=== PATIENT | male | born 1945 | race Caucasian/White ===

== ENCOUNTER → 2021-01-08 | Outpatient (CLI) | payer MEDICARE, BC ==
[~2021-01-08] MED LIST: AMLO2.5T5 PO; ASPI81TA45 PO; CLON-364 PO; CLOP75TA52 PO; LEVO75TA PO; LOSA100T14 PO; ROSU10TA2 PO
[2021-01-08 16:43] LABS: BASOPHILS % (AUTO) 0 % (0-1); EOSINOPHILS % (AUTO) 2 % (1-7); LYMPHOCYTES % (AUTO) 22 % (22-44); MEAN CORPUSCULAR HEMOGLOBIN 31.5 pg (27.5-34.5); MEAN PLATELET VOLUME 8.8 fL (7.4-10.4); MONOCYTES % (AUTO) 13 % (2-9); NEUTROPHILS % (AUTO) 63 % (42-75); PLATELET COUNT 188 x10^3/uL (130-400); RED BLOOD COUNT 4.11 x10^6/uL (4.38-5.82); RED CELL DISTRIBUTION WIDTH 14.2 % (9.4-14.8)
[2021-01-08 16:54] LABS: ALANINE AMINOTRANSFERASE 29 U/L (12-78); ALBUMIN 3.4 g/dL (3.4-5.0); ANION GAP 4 mmol/L (5-15); CALCIUM 8.4 mg/dL (8.5-10.1); CHLORIDE 108 mmol/L (98-107); CREATININE 1.49 mg/dL (0.7-1.3)
[2021-01-08 16:57] LABS: ALKALINE PHOSPHATASE 95 U/L (45-117); BILIRUBIN,TOTAL 0.5 mg/dL (0.2-1.0); TOTAL PROTEIN 6.2 g/dL (6.4-8.2)
== END | disposition home or self-care (01) ==
LOC: MERGE 15:12 → CLISVCS 15:12
PROVIDERS: ATTEND Surgery
DX: Z01.818 Encounter for other preprocedural examination (principal); M51.34 Other intervertebral disc degeneration, thoracic region; R94.31 Abnormal electrocardiogram [ECG] [EKG]
CPT/HCPCS: 36415; 71046; 80053; 85025; 93005

== ENCOUNTER 2021-01-15 07:23 | Inpatient (IN) | payer MEDICARE, BC ==
[~2021-01-15] VITALS: Ht 182.9 cm; Wt 83.5 kg
[~2021-01-15 07:23] MED LIST changes: +HEPARIN 1,000 UNITS/ML, 10ML ONE; +LIDOCAINE 1%, 20ML ONE; +PROTAMINE SULFATE 10 MG/ML, 5ML ONE; +THROMBIN 5,000 UNIT VIAL TP ONE
[2021-01-15] MEDS: LACTATED RINGERS 1,000 ML IV SCH ×2 (08:25→08:51)
[2021-01-15] MEDS ORDERED: ASPIRIN 81 MG TABLET CHEW PO ONE (08:30)
[2021-01-15] MEDS ORDERED: CHLORHEXIDINE 15 ML UDC PO ONE (08:30)
[2021-01-15] MEDS ORDERED: ASPIRIN 81 MG TABLET EC ONE (08:32)
[2021-01-15] MEDS ORDERED: ASPIRIN 81 MG TABLET EC PO SCH (09:00)
[2021-01-15] MEDS ORDERED: ASPIRIN 81 MG TABLET EC PO ONE (09:30)
[2021-01-15] MEDS ORDERED: FENTANYL PF 250 MCG/5ML ONE (10:21)
[2021-01-15] MEDS ORDERED: ROCURONIUM 10MG/ML,5ML ONE ×2 (10:22→11:57)
[2021-01-15] MEDS ORDERED: PROPOFOL 10 MG/ML, 20ML ONE (10:22)
[2021-01-15] MEDS ORDERED: GLYCOPYRROLATE 0.2MG/1ML, 5ML ONE (10:22)
[2021-01-15] MEDS ORDERED: CEFAZOLIN 1,000 MG ONE (10:22)
[2021-01-15] MEDS ORDERED: NEOSTIGMINE 1 MG/ML, 10ML ONE (10:22)
[2021-01-15] MEDS ORDERED: VASOPRESSIN 20 UNIT/ML, 1ML ONE (10:36)
[2021-01-15] MEDS ORDERED: MEPERIDINE/PF 25MG/0.5ML IVPush PRN (11:00)
[2021-01-15] MEDS ORDERED: ONDANSETRON 2MG/ML, 2ML IVPush PRN (11:00)
[2021-01-15] MEDS ORDERED: hydrALAzine 20 MG/ML, 1ML IV PRN (11:00)
[2021-01-15] MEDS ORDERED: LABETALOL 5MG/ML, 20ML IV PRN (11:00)
[2021-01-15] MEDS ORDERED: HYDROmorphone 1 MG/ML, 1ML INJ IVPush PRN (11:00)
[2021-01-15] MEDS ORDERED: morphine SULFATE 10 MG/ML, 1ML IVPush PRN (11:00)
[2021-01-15] MEDS ORDERED: HEPARIN 1,000 UNITS/ML, 10ML IV ONE (11:07)
[2021-01-15] MEDS ORDERED: PROTAMINE SULFATE 10 MG/ML, 5ML ONE (12:31)
[2021-01-15] MEDS ORDERED: EPINEPHRINE 1 MG/ML, 1ML ONE (12:38)
[2021-01-15] MEDS ORDERED: BUPIVACAINE/PF 0.25% ONE (12:38)
[2021-01-15] MEDS ORDERED: BUPIVACAINE/PF-EPI 0.25% 1:200K INFIL ONE (12:41)
[2021-01-15] MEDS ORDERED: FENTANYL PF 100 MCG/2ML ONE (13:08)
[2021-01-15] MEDS: FENTANYL PF 100 MCG/2ML IV PRN ×2 (13:25→13:45)
[2021-01-15] MEDS ORDERED: HYDROcodone/APAP 5/325 TABLET PO PRN (19:00)
[2021-01-15] MEDS ORDERED: ONDANSETRON 2MG/ML, 2ML IV PRN (19:00)
[2021-01-15 19:26] VITALS: BP 158/81
[2021-01-15] MEDS: OXYcodone IR 5MG TABLET PO PRN ×2 (19:31→23:48)
[2021-01-15] MEDS: SODIUM CHLORIDE FLUSH 10ML SYR IVF SCH (21:00)
[2021-01-15] MEDS: AMLODIPINE 2.5 MG TABLET PO SCH (21:24)
[2021-01-15 23:48] VITALS: BP 167/80
[2021-01-16] VITALS (9 sets, daily range): BP systolic 144–186; BP diastolic 70–94
[2021-01-16] MEDS: LABETALOL 5MG/ML, 20ML IVPush PRN ×3 (00:43→20:27)
[2021-01-16] MEDS: OXYcodone IR 5MG TABLET PO PRN ×2 (03:48→07:02)
[2021-01-16] MEDS: LACTATED RINGERS 1,000 ML IV SCH ×3 (03:49→23:00)
[2021-01-16] MEDS: LEVOTHYROXINE 75 MCG TABLET PO SCH (07:02)
[2021-01-16] MEDS: HEPARIN 5,000 UNITS/ML, 1ML SQ SCH ×3 (07:03→23:20)
[2021-01-16] MEDS: CLOPIDOGREL 75 MG TABLET PO SCH (08:16)
[2021-01-16] MEDS: ASPIRIN 81 MG TABLET EC PO SCH (08:16)
[2021-01-16] MEDS: SODIUM CHLORIDE FLUSH 10ML SYR IVF SCH ×2 (08:16→20:26)
[2021-01-16] MEDS: LOSARTAN 100 MG TAB PO SCH (08:16)
[2021-01-16] MEDS: AMLODIPINE 2.5 MG TABLET PO SCH (20:26)
[2021-01-17 02:26] VITALS: BP 130/60
[2021-01-17] MEDS: HEPARIN 5,000 UNITS/ML, 1ML SQ SCH (06:17)
[2021-01-17] MEDS: LEVOTHYROXINE 75 MCG TABLET PO SCH (06:17)
[2021-01-17] MEDS: LACTATED RINGERS 1,000 ML IV SCH (07:23)
[2021-01-17 08:18] VITALS: BP 189/81
[2021-01-17] MEDS: ASPIRIN 81 MG TABLET EC PO SCH (08:41)
[2021-01-17] MEDS: AMLODIPINE 2.5 MG TABLET PO SCH (08:41)
[2021-01-17] MEDS: CLOPIDOGREL 75 MG TABLET PO SCH (08:41)
[2021-01-17] MEDS: SODIUM CHLORIDE FLUSH 10ML SYR IVF SCH (08:41)
[2021-01-17] MEDS: LOSARTAN 100 MG TAB PO SCH (08:41)
[2021-01-17 09:31] VITALS: BP 180/91
[2021-01-17] MEDS: LABETALOL 5MG/ML, 20ML IVPush PRN (09:33)
[2021-01-17] MEDS ORDERED: OXYC5CAP2 PO (12:54)
[2021-01-17] MEDS ORDERED: ROSU20TA2 PO (12:54)
[2021-01-17 12:55] VITALS: BP 115/65
[2021-01-17] MEDS ORDERED: DOCU-131 PO (12:55)
== END 2021-01-17 13:41 | disposition home or self-care (01) | DRG 39 ==
LOC: ORIP 07:23 → 4NE 16:20
PROVIDERS: ADMIT Surgery; ATTEND Surgery
PROC: 03UL0KZ Supplement Left Internal Carotid Artery with Nonautologous Tissue Substitute, Open Approach (ICD-10-PCS; 2021-01-15)
PROC: 03CL0ZZ Extirpation of Matter from Left Internal Carotid Artery, Open Approach (ICD-10-PCS; principal; 2021-01-15 10:00)
DX: I65.22 Occlusion and stenosis of left carotid artery (principal); N40.0 Benign prostatic hyperplasia without lower urinary tract symptoms; R31.9 Hematuria, unspecified; R47.01 Aphasia; J44.9 Chronic obstructive pulmonary disease, unspecified; I10 Essential (primary) hypertension; E78.5 Hyperlipidemia, unspecified; Z88.1 Allergy status to other antibiotic agents; Z88.5 Allergy status to narcotic agent
CPT/HCPCS: 36415; 85347; 86850; 86900; 88304; 88311; G0378; J0171; J0690; J1644; J2704; J2710; J2720; J3010; C1768; J7120